=== PATIENT | female | born 1990 | race Caucasian/White ===

== ENCOUNTER 2017-01-02 15:23 | Emergency (ER) | payer SELFPAY ==
[2017-01-02 15:28] VITALS: BP 126/71; PULSE 80; TEMP 98.8
[2017-01-02 16:02] VITALS: BMI 27.4
[2017-01-02 16:31] LABS: BLOOD UREA NITROGEN 11 MG/DL (7-17); CALCIUM 8.9 MG/DL (8.4-10.2); CALCULATED OSMOLALITY 266 MOs/Kg (270-290); CHLORIDE 105 mEq/L (98-107); GLUCOSE 83 mg/dL (70-99); SODIUM LEVEL 139 mEq/L (137-146); TOTAL PROTEIN 7.2 G/DL (6.3-8.2)
[2017-01-02 16:34] LABS: AUTOMATED BASOPHIL 0.9 % (0-2); AUTOMATED EOSINOPHIL 3.5 % (0-5); AUTOMATED LYMPH 33.1 % (17-44); AUTOMATED MONOCYTE 7.2 % (3-10); AUTOMATED NEUTROPHIL 55.3 % (45-76); MPV 9.1 fL (7.4-10.4)
--- NOTE | 2017-01-02 17:58 | EDPRACDOC ---
- General Information Chief Complaint: Vaginal Bleeding Stated Complaint: MISCARRIAGE DIZZY PASSING CLOTS CRAMPS Time Seen by Provider: 01/02/17 17:51 Information Source: Patient Home Medications: Home Medications Vits W-Ca,Fe,FA(<1Mg) [] 1 each PO DAILY 10/09/12 Iron [Niferex Forte] 1 each PO BID 07/12/14 Hydrocodone Bit/Acetaminophen [Denbo 5-325 Tablet] 1 - 2 tab PO Q4H PRN #30 tab 08/17/14 Ibuprofen 800 mg PO Q6-8H #60 tablet 08/17/14 Naproxen Sodium 500 mg PO BID PRN #20 tablet.sa 01/02/17 Allergies/Adverse Reactions: Allergies Allergy/AdvReac Type Severity Reaction Status Date / Time No Known Allergies Allergy Verified 08/18/14 08:28 - History of Present Illness Onset: MONDAY HPI: PT COMPLAINS OF LOWER ABD CRAMPING, VAGINAL BLEEDING, PASSING CLOTS, SYMPTOMS BEGAN MONDAY NIGHT, NO FEVER OR CHILLS, NO N/V/D. PT STATES FEELS "DIZZY", HAS IMPLANON IN PLACE X 3 YEARS. Description: Reports: Spontaneous Location: Reports: Internal Vagina Relevant History: Reports: Sexually Active : 3 Para: 2 Total Number of Abortions: 1 Control Method: Reports: Norplant Pain Severity: Mild Vaginal Bleeding Description: Reports: Dark, Clotted Associated Signs & Symptoms: Reports: Abdominal Pain, Vaginal Bleeding. Denies : Fever, Dysuria, Frequency, Nausea, Vomiting, Vaginal Discharge ED Past Medical History - History Reviewed Yes Nurses notes reviewed and agree except as marked No Past Medical History: Yes Patient has no past medical history - Patient Medical History Psychological History: Denies: Depression Systemic History: Denies: Cancer Surgical History: Reports: Other (D AND C) - Family Medical History Reports: Hypertension, Diabetes - Social Medical History Smoking Status: Never smoker ETOH: None Substance Abuse: None EDM Review of Systems - Review of Systems Constitutional: negative: Chills, Fever Eyes: negative: Blurred Vision, Double Vision Ears: negative: Drainage Throat: negative: Pain Nose: negative: Congestion, Discharge Respiratory: negative: Cough, Shortness of Breath, Wheezing Cardiovascular: negative: Chest Pain, Palpitations Gastrointestinal: Pain. negative: Diarrhea, Nausea, Vomiting Genitourinary: Vaginal Bleeding. negative: Dysuria, Frequency Neurological: negative: Dizziness, Headache, Numbness, Weakness Musculoskeletal: No Symptoms Reported Integumentary: No Symptoms Reported - Physical Exam Constitutional: Alert (Awake), No apparent distress Oriented to: Time, Person, Place Last recorded Vital Signs: Last Vital Signs Temp 98.8 F 01/02/17 15:23 Pulse 80 01/02/17 15:23 Resp 18 01/02/17 15:23 BP 126/71 01/02/17 15:23 Pulse Ox 99 01/02/17 15:23 Oxygen Pulse Oxygen Saturation 99 O2 Device Room Air Oxygen Flow Rate Fraction of Inspired Oxygen ( FIO2) - HEENT Head: Normal ( normocephalic) Eye Exam: Normal (PERRL, EOMI, Sclera white) Oropharynx: Normal (Pharynx:Moist without exudate,Gums-no swelling) Tympanic Membrane: Normal ENT EAC: Normal TMJ: Normal Nose: No Symptoms Reported (septum midline) Neck: Normal (FROM, trachea at midline) - Respiratory/Cardiovascular Respiratory: Normal - CTA (BBS clear to auscultation without adventitious sounds ) Cardiovascular: Normal (RRR without murmur, gallop or rub) - GI Auscultation: Normal (NABS) Palpation: Normal (Soft,No rebound or guarding, non distended) Tenderness: Mild, RLQ, Suprapubic. negative: Guarding, Rebound, Rigidity Mcpherson's Sign: Negative - Bladder: Normal External: Normal Vagina: Blood. negative: Discharge Cervix: Blood. negative: Discharge, Tissue, Tenderness, Open Uterus: Normal size Adnexa: Bilateral: Tender (MILD) - Musculoskeletal Back: Normal (Non-Tender) Extremities: Normal (Normal tone, Pulses 2+ No cyanosis or edema, FROM) - Integumentary Skin: Normal, Warm, Dry Lymphatics: Normal (no adenopathy) - Neurologic Memory Impaired: Normal Motor Function: Normal (Normal tone, Pulses 2+ No cyanosis or edema, FROM) Cranial Nerve: Normal (CN II-X11 intact sensation, strength 5/5) Cerebellar: Normal Mood Description: Normal Perception: Normal - Differential Diagnosis Cervicitis, Menorrhagia, Menometrorrhagia, Myomatous Uterus, UTI, Vaginitis - Results 01/02/17 16:07 01/02/17 16:07 WBC 7.2 xk/uL (3.8-10.8) 01/02/17 16:07 RBC 4.34 xM/uL (4.20-5.40) 01/02/17 16:07 Hgb 13.1 g/dL (12.0-16.0) 01/02/17 16:07 Hct 39.2 % (36-47) 01/02/17 16:07 MCV 90 fL (81-99) 01/02/17 16:07 MCH 30.1 pg (27-32) 01/02/17 16:07 MCHC 33.3 g/dl (33-36) 01/02/17 16:07 RDW 12.8 % (11.5-14.5) 01/02/17 16:07 Plt Count 205 xk/uL (130-400) 01/02/17 16:07 MPV 9.1 fL (7.4-10.4) 01/02/17 16:07 Neut % (Auto) 55.3 % (45-76) 01/02/17 16:07 Lymph % (Auto) 33.1 % (17-44) 01/02/17 16:07 Casey % (Auto) 7.2 % (3-10) 01/02/17 16:07 Eos % (Auto) 3.5 % (0-5) 01/02/17 16:07 Baso % (Auto) 0.9 % (0-2) 01/02/17 16:07 Absolute Neuts (auto) 3.96 xk/uL (1.7-8.2) 01/02/17 16:07 Absolute Lymphs (auto) 2.38 xk/uL (0.65-4.75) 01/02/17 16:07 Sodium 139 mEq/L (137-146) 01/02/17 16:07 Potassium 3.9 mEq/L (3.5-5.1) 01/02/17 16:07 Chloride 105 mEq/L (98-107) 01/02/17 16:07 Carbon Dioxide 27 mMOL/L (22-33) 01/02/17 16:07 Anion Gap 11 mEq/L (8-16) 01/02/17 16:07 BUN 11 MG/DL (7-17) 01/02/17 16:07 Creatinine 0.60 MG/DL (0.52-1.04) 01/02/17 16:07 Estimated GFR (MDRD) > 60 mL/min (>=60) 01/02/17 16:07 Glucose 83 mg/dL (70-99) 01/02/17 16:07 Calculated Osmolality 266 MOs/Kg (270-290) L 01/02/17 16:07 Calcium 8.9 MG/DL (8.4-10.2) 01/02/17 16:07 Corrected Calcium 9.0 MG/DL (8.4-10.2) 01/02/17 16:07 Total Bilirubin 0.6 MG/DL (0.2-1.3) 01/02/17 16:07 AST 20 IU/L (14-36) 01/02/17 16:07 ALT 21 IU/L (9-52) 01/02/17 16:07 Alkaline Phosphatase 52 IU/L (38-126) 01/02/17 16:07 Total Protein 7.2 G/DL (6.3-8.2) 01/02/17 16:07 Albumin 3.9 G/DL (3.5-5.0) 01/02/17 16:07 Urine Test Neg (NEGATIVE) 01/02/17 16:04 Lab Results 01/02/17 01/02/17 01/02/17 16:07 16:07 16:04 WBC 7.2 RBC 4.34 Hgb 13.1 Hct 39.2 MCV 90 MCH 30.1 MCHC 33.3 RDW 12.8 Plt Count 205 MPV 9.1 Neut % (Auto) 55.3 Lymph % (Auto) 33.1 Casey % (Auto) 7.2 Eos % (Auto) 3.5 Baso % (Auto) 0.9 Absolute Neuts (auto) 3.96 Absolute Lymphs (auto) 2.38 Sodium 139 Potassium 3.9 Chloride 105 Carbon Dioxide 27 Anion Gap 11 BUN 11 Creatinine 0.60 Estimated GFR (MDRD) > 60 Glucose 83 Calculated Osmolality 266 L Calcium 8.9 Corrected Calcium 9.0 Total Bilirubin 0.6 AST 20 ALT 21 Alkaline Phosphatase 52 Total Protein 7.2 Albumin 3.9 Urine Test Neg Decision Time to Discharge: 18:34 - Departure Disposition: Home Condition: Stable Final Diagnosis: Dysfunctional uterine bleeding Instructions: Dysfunctional Uterine Bleeding (ED) Education/Counseling Given To: Patient Education/Counseling Given Regarding: Diagnosis, Treatment, Prognosis, Follow Up Referrals: None,No Provider [Primary Care Provider] - One Week Prescriptions: New Naproxen Sodium 500 mg PO BID PRN #20 tablet.sa PRN Reason: Pain No Action Vits W-Ca,Fe,FA(<1Mg) [] 1 each PO DAILY Iron [Niferex Forte] 1 each PO BID Ibuprofen 800 mg PO Q6-8H #60 tablet Hydrocodone Bit/Acetaminophen [Denbo 5-325 Tablet] 1 - 2 tab PO Q4H PRN #30 tab PRN Reason: Pain Additional Instructions: REST, DRINK PLENTY OF FLUIDS, RETURN TO THE ED FOR ANY WORSENING SYMPTOMS OR CONCERNS.
[2017-01-02 18:00] LABS: LEUKOCYTES/URINE NEG (NEGATIVE); NITRITE/URINE NEG (NEGATIVE); URINE OCCULT BLOOD 2+ (NEG/TRACE)
[2017-01-04 05:42] LABS: CHLAMY BY NUCLEIC ACID AMP Negative (Negative)
[2017-01-04 06:48] LABS: GC BY NUCLEIC ACID AMP Negative (Negative)
== END 2017-01-02 18:45 | disposition home or self-care (01) ==
LOC: ED 15:23 → EDMC 18:45
DX: N93.8 Other specified abnormal uterine and vaginal bleeding (principal)
CPT/HCPCS: 36415; 80053; 81001; 81025; 85025; 87210; 87220; 87491; 87591; 99283